=== PATIENT | female | born 1950 | race African-American/Black ===

== ENCOUNTER → 2019-08-06 | Outpatient (CLI) | payer BC ==
[2013-11-15 16:45] VITALS: BP 171/74
[~2019-08-06] MED LIST: ALLO300T PO; ASPI81TA59 PO; HYDR-2145 PO; LISI-130 PO; METF10007 PO; PIOG1TAB38 PO; PRAV20TA2 PO
--- NOTE | 2019-08-06 11:07 | RAD ---
3 views of the right hand and 2 views of the left for pain in both hands, no known injury. FINDINGS: There is no fracture, dislocation, or acute osseous abnormality of either hand. Both hands demonstrate symmetrical advanced osteoarthritis of the first carpometacarpal joint, with no other significant degenerative changes. No radiopaque foreign bodies. IMPRESSION: 1. No acute osseous abnormality of either hand. 2. Advanced mono articular osteoarthritis of the first carpometacarpal joint in both hands. Electronically signed by: West Gaspar MD (08/06/2019 11:04 AM) [id number]
== END ==
LOC: RAD 10:04
PROVIDERS: ATTEND Nurse Practitioner Gerontology
DX: M19.042 Primary osteoarthritis, left hand (principal); M19.041 Primary osteoarthritis, right hand
CPT/HCPCS: 73130

== ENCOUNTER → 2019-09-15 | Outpatient (CLI) | payer BC ==
[2013-11-15 16:45] VITALS: BP 171/74
== END | disposition home or self-care (01) ==
LOC: LAB 12:53
PROVIDERS: ATTEND Internal Medicine Gastroenterology
DX: Z01.812 Encounter for preprocedural laboratory examination (principal); Z11.59 Encounter for screening for other viral diseases
CPT/HCPCS: 36415; 87635

== ENCOUNTER → 2019-09-19 | Day surgery (SDC) | payer BC ==
[~2019-09-19] MED LIST changes: +IV RINGERS,LACTATED 1000ML 1,000 ML IV SCH; +LIDOCAINE 2% PF 5 ML VIAL. ONE; +PROPOFOL 10 MG/ML (20ML) VIAL. IV ONE
[2019-09-19 09:07] VITALS: BP 132/53
== END | disposition home or self-care (01) ==
LOC: ENDOS 06:34
PROVIDERS: ATTEND Internal Medicine Gastroenterology
DX: R13.10 Dysphagia, unspecified (principal); K21.9 Gastro-esophageal reflux disease without esophagitis; I10 Essential (primary) hypertension; E11.9 Type 2 diabetes mellitus without complications; E78.00 Pure hypercholesterolemia, unspecified; Z98.890 Other specified postprocedural states; Z82.3 Family history of stroke; Z82.49 Family history of ischemic heart disease and other diseases of the circulatory system; Z83.3 Family history of diabetes mellitus; Z79.899 Other long term (current) drug therapy; Z79.84 Long term (current) use of oral hypoglycemic drugs; Z90.710 Acquired absence of both cervix and uterus
CPT/HCPCS: 43235; 43450; J2704; J3490

== ENCOUNTER → 2019-10-03 | Outpatient (CLI) | payer BC ==
[2019-09-19 09:07] VITALS: BP 132/53
[~2019-10-03] MED LIST changes: +CONTRAST GIVEN. MC PRN; +IOHEXOL 240 MG/ML 50ML VIAL. PO ONE; -IV RINGERS,LACTATED 1000ML 1,000 ML IV SCH; -LIDOCAINE 2% PF 5 ML VIAL. ONE; -PROPOFOL 10 MG/ML (20ML) VIAL. IV ONE
[2019-10-03 12:53] LABS: CREATININE 1.8 mg/dL (0.6-1.0); GFR 33.9
--- NOTE | 2019-10-03 14:54 | RAD ---
EXAM: CT Chest and Abdomen without IV contrast CLINICAL HISTORY: Reason: chest pain/ abd pain wt. loss COMPARISON: None. TECHNIQUE: Helical CT of the chest and abdomen was performed without intravenous contrast. Axial, coronal and sagittal reformatted images were generated. ---PQRS compliance statement - One or more of the following individualized dose reduction techniques were utilized for this study: 1. Automated exposure control 2. Adjustment of the mA and/or kV according to patient size 3. Use of iterative reconstruction technique--- FINDINGS: Lack of intravenous contrast limits evaluation of solid organs, vasculature, and lymph nodes. Chest: The heart is mildly enlarged. No pericardial effusion. Coronary artery calcifications are seen. Relative hypoattenuation of the blood pool to the myocardium may be seen with anemia. Within the constraints of this noncontrast examination, no mediastinal or hilar lymphadenopathy. No axillary lymphadenopathy. No pleural effusion or pneumothorax. No dominant lung mass is seen. A 4 mm right upper lobe lung nodules is seen (series 2 image 22). Abdomen: No focal liver lesion. Gallbladder is normal. No biliary ductal dilatation. Spleen is unremarkable. Adrenal glands and pancreas are unremarkable. No renal calculus. No focal renal lesion. No hydronephrosis. No small or large bowel dilatation. Moderate colonic stool content. Aortic calcifications are seen. Bones: No aggressive osseous lesion is seen. Degenerative changes of the spine are seen. IMPRESSION: No thoracic or abdominal lymphadenopathy within the constraints of this noncontrast examination. Heart is mildly enlarged. Aortic and coronary artery calcifications are seen. Relative hypoattenuation of the blood pool to the myocardium may be seen with anemia. Electronically signed by: Lai Parks MD (10/03/2019 2:51 PM) [facility]
== END | disposition home or self-care (01) ==
LOC: CT 12:21
PROVIDERS: ATTEND Internal Medicine Gastroenterology
DX: I51.7 Cardiomegaly (principal); I25.10 Atherosclerotic heart disease of native coronary artery without angina pectoris; I70.0 Atherosclerosis of aorta; M47.814 Spondylosis without myelopathy or radiculopathy, thoracic region; R91.8 Other nonspecific abnormal finding of lung field; R10.9 Unspecified abdominal pain; R63.4 Abnormal weight loss
CPT/HCPCS: 36415; 71250; 74150; 82565; 84520; Q9966

== ENCOUNTER → 2019-10-23 | Outpatient (CLI) | payer BC ==
[2019-09-19 09:07] VITALS: BP 132/53
[~2019-10-23] MED LIST changes: -CONTRAST GIVEN. MC PRN; -IOHEXOL 240 MG/ML 50ML VIAL. PO ONE
--- NOTE | 2019-10-23 15:47 | RAD ---
EXAM: Left hand, 3 views. HISTORY: Pain. COMPARISON: None. FINDINGS: 3 views of the left and are obtained. There is severe first carpometacarpal joint space narrowing with subchondral sclerosis, spurring and bony remodeling. This includes chronic fragmented spurs. There is no foreign body. There are vascular calcifications. IMPRESSION: 1. Severe first carpal metacarpal joint osteoarthritis with associated bony remodeling. 2. No acute osseous finding. Electronically signed by: Deneen Antonio MD (10/23/2019 3:44 PM) [facility]
== END | disposition home or self-care (01) ==
LOC: RAD 15:12
PROVIDERS: ATTEND Family Medicine
DX: M19.042 Primary osteoarthritis, left hand (principal); M77.9 Enthesopathy, unspecified
CPT/HCPCS: 73130

== ENCOUNTER → 2019-11-25 | Outpatient (CLI) | payer BC ==
[2019-09-19 09:07] VITALS: BP 132/53
[~2019-11-25] MED LIST changes: +REGADENOSON 0.4 MG/5 ML DISP.SYRIN. IV ONE
--- NOTE | 2019-11-25 14:27 | CARD ---
MR#: [id number] Date of Study: 11/25/2019 Ordering Physician: RICHIE WEEMS, Referring Physician: RICHIE WEEMS, Tech: Patito Alston APPROVED REPORT EXAM: Two-dimensional and M-mode echocardiogram with Doppler and color Doppler. Other Information Quality : AverageHR: 88bpm INDICATION Dyspnea RISK FACTORS Hypertension Hyperlipidemia Diabetes 2D DIMENSIONS RVDd3.7 (2.9-3.5cm)Left Atrium(2D)4.1 (1.6-4.0cm) IVSd1.1 (0.7-1.1cm)Aortic Root(2D)2.8 (2.0-3.7cm) LVDd5.7 (3.9-5.9cm)LVOT Diameter1.9 (1.8-2.4cm) PWd1.3 (0.7-1.1cm)LVDs3.2 (2.5-4.0cm) FS (%) 45.1 %SV123.2 ml Aortic Valve AoV Peak Carlos.227.0cm/sAoV VTI51.2cm AO Peak GR.20.6mmHgLVOT Peak Carlos.133.2cm/s LVOT VTI 33.39cmAO Mean GR.11mmHg ALEJANDRA (VMAX)1.84gh6OBY (VTI)1.91cm2 Mitral Valve MV E Jseszsyh773.3cm/sMV E Peak Gr.123mmHg MV DECEL [id number] A Ivlrsutw974.3cm/s MV E Mean Gr.6mmHgMV [id number] E/A Ratio1.2MVA (PHT)3.92cm2 TDI E/Lateral E'19.0E/Medial E'19.6 Pulmonary Valve PV Peak Dmwdzyxa421.2cm/sPV Peak Grad.5mmHg Tricuspid Valve TR P. Gdccvqzo601ow/sRAP XWNHVQOP36khZb TR Peak Gr.26nxLrTLYP68qsUp Pulmonary Vein S1 Exarktwr99.7cm/sD2 Ymltzala45.4cm/s PVa cbcyfshi685trvh LEFT VENTRICLE The left ventricle is normal size. There is mild concentric left ventricular hypertrophy. The left ve ntricular systolic function is normal and the ejection fraction is within normal range. The Ejection Fraction is 60-65%. There is normal LV segmental wall motion. Transmitral Doppler flow pattern is Gra de II-pseudonormal filling dynamics. RIGHT VENTRICLE The right ventricle is normal size. There is normal right ventricular wall thickness. The right ventr icular systolic function is normal. ATRIA The left atrium is mildly dilated. The right atrium is borderline dilated. The interatrial septum is intact with no evidence for an atrial septal defect or patent foramen ovale as noted on 2-D or Dopple r imaging. AORTIC VALVE The aortic valve is thickened but opens well. Doppler and Color Flow revealed trace aortic regurgitat ion. There is no significant aortic valvular stenosis. Calculated aortic valve area is 1.98 cm2 with maximum pressure gradient of 23 mmHg and mean pressure gradient of 13 mmHg. MITRAL VALVE The mitral valve is normal in structure and function. There is no evidence of mitral valve prolapse. There is no mitral valve stenosis. Doppler and Color-flow revealed mild mitral regurgitation. TRICUSPID VALVE The tricuspid valve is normal in structure and function. Doppler and Color Flow revealed mild tricusp id regurgitation with an estimated PAP of 63 mmHg. There is no tricuspid valve stenosis. PULMONIC VALVE Doppler and Color Flow revealed trace pulmonic valvular regurgitation. GREAT VESSELS The aortic root is normal in size. The IVC is dilated and collapses <50% with inspiration. PERICARDIAL EFFUSION There is no evidence of significant pericardial effusion. Critical Notification Critical Value: No <Conclusion> The left ventricle is normal size. The left ventricular systolic function is normal and the ejection fraction is within normal range. The Ejection Fraction is 60-65%. There is mild concentric left ventricular hypertrophy. Doppler and Color Flow revealed trace aortic regurgitation. There is no significant aortic valvular stenosis. Calculated aortic valve area is 1.98 cm2 with maximum pressure gradient of 23 mmHg and mean pressure gradient of 13 mmHg. Doppler and Color-flow revealed mild mitral regurgitation. Doppler and Color Flow revealed mild tricuspid regurgitation with an estimated PAP of 63 mmHg. Signed by : Hiram Perez MD Electronically Approved : 11/25/2019 14:27:03
--- NOTE | 2019-11-26 17:18 | RAD ---
MR#: [id number] Date of Study: 11/26/2019 Ordering Physician: RICHIE WEEMS, Referring Physician: RICHIE WEEMS, Tech: Nathaniel Sutherland RVT APPROVED REPORT Patient Location: OUT-PATIENT Laterality:Bilateral Indications Bruit off and on weakness in hands x few months Risk Factors Hypertension: Diabetes Doppler Spectral Velocity Analysis Right Left pCCA 105/17 cm/spCCA 109/20 cm/s mCCA 113/15 cm/smCCA 103/23 cm/s dCCA 134/25 cm/sdCCA 97/23 cm/s ECA 132/ cm/sECA 76/ cm/s pICA 127/22 cm/spICA 99/22 cm/s Collin 127/30 cm/smICA 92/23 cm/s dICA 111/30 cm/sdICA 100/31 cm/s Vert. 103/23 cm/sVert. 88/24 cm/s ICA/CCA 1.10ICA/CCA 0.97 Findings Grayscale images of the bilateral carotid vessels demonstrates mild to moderate diffuse atherosclerot ic plaque. No significant focal obstruction is evident on grayscale images On the right side the peak systolic velocity is approximately 162 cm/s suggestive of a moderate steno sis. No significant occlusion is noted on the left side. Bilateral vertebral velocities are antegra de. Normal ICA to CCA ratios bilaterally. Critical Notification Critical Value: No <Conclusion> 1. Mild to moderate bilateral carotid disease. No focal high-grade obstruction noted. Signed by : Richie Weems, Electronically Approved : 11/26/2019 17:18:20
== END | disposition home or self-care (01) ==
LOC: NM 09:27
PROVIDERS: ATTEND Internal Medicine Cardiovascular Disease
DX: I08.1 Rheumatic disorders of both mitral and tricuspid valves (principal); I70.203 Unspecified atherosclerosis of native arteries of extremities, bilateral legs
CPT/HCPCS: 93306; 93880

== ENCOUNTER → 2019-12-26 | Outpatient (CLI) | payer BC ==
[2019-09-19 09:07] VITALS: BP 132/53
[~2019-12-26] MED LIST changes: +ALPR0.254 PO; +CYAN10002 IJ; +GABA300C18 PO; +METF500T16 PO; +PANT40TA77 PO; -REGADENOSON 0.4 MG/5 ML DISP.SYRIN. IV ONE
== END | disposition home or self-care (01) ==
LOC: LAB 12:48
PROVIDERS: ATTEND Internal Medicine Cardiovascular Disease
DX: R06.00 Dyspnea, unspecified (principal); Z20.828 Contact with and (suspected) exposure to other viral communicable diseases
CPT/HCPCS: U0003-CS

== ENCOUNTER 2019-12-30 06:42 | Outpatient (CLI) | payer BC ==
[2019-12-30] VITALS (19 sets, daily range): BP systolic 126–152; BP diastolic 57–73
[~2019-12-30] VITALS: Ht 162.6 cm; Wt 112.5 kg
[~2019-12-30 06:42] MED LIST changes: -ALPR0.254 PO; -CYAN10002 IJ; -GABA300C18 PO; -METF500T16 PO; -PANT40TA77 PO
[2019-12-30] MEDS ORDERED: LIDOCAINE 1% PF 2 ML VIAL. ONE (07:36)
[2019-12-30] MEDS ORDERED: IODIXANOL 320 MG/ML 100 ML VIAL. ONE (07:36)
[2019-12-30] MEDS ORDERED: HEPARIN for ARTERIAL LINE 1,500 ML ONE (07:36)
[2019-12-30 07:41] LABS: HEMATOCRIT 35.2 % (36.0-47.0); HEMOGLOBIN 11.5 g/dL (12.0-15.5); RED BLOOD COUNT 4.28 x10^6/uL (3.50-5.40); RED CELL DISTRIBUTION WIDTH 16.1 % (11.5-14.5); WHITE BLOOD COUNT 8.4 x10^3/uL (4.0-11.0)
[2019-12-30 07:47] LABS: CALCIUM 9.7 mg/dL (8.5-10.1); CREATININE 1.8 mg/dL (0.6-1.0); GFR 33.9; POTASSIUM 4.6 mmol/L (3.5-5.1)
[2019-12-30 07:55] LABS: PROTHROMBIN TIME PATIENT 12.1 SEC (11.7-14.0)
[2019-12-30] MEDS ORDERED: METF500T16 PO (08:10)
[2019-12-30] MEDS ORDERED: GABA300C18 PO (08:10)
[2019-12-30] MEDS ORDERED: PANT40TA77 PO (08:10)
[2019-12-30] MEDS ORDERED: HYDR-2145 PO (08:10)
[2019-12-30] MEDS ORDERED: ALPR0.254 PO (08:10)
[2019-12-30] MEDS ORDERED: CYAN10002 IJ (08:10)
[2019-12-30] MEDS ORDERED: fentaNYL PF VIAL 100 MCG/2 ML VIAL ONE (08:37)
[2019-12-30] MEDS ORDERED: MIDAZOLAM HCL/PF 2 MG/2 ML VIAL. ONE (08:37)
[2019-12-30] MEDS ORDERED: VERAPAMIL 5 MG/2 ML VIAL. ONE (08:37)
[2019-12-30] MEDS ORDERED: NITROGLYCERIN 200 MCG/2 ML SYRINGE FOR CATH/VASC LAB. ONE (08:37)
[2019-12-30] MEDS ORDERED: HEPARIN for IV BOLUS 10,000 UNIT/10 ML VIAL. ONE (08:37)
[2019-12-30] MEDS ORDERED: LIDOCAINE 1% Multi-Dose 20 ML VIAL. ONE (09:02)
[2019-12-30] MEDS ORDERED: fentaNYL PF VIAL 100 MCG/2 ML VIAL IV ONE (09:15)
[2019-12-30] MEDS ORDERED: LIDOCAINE 1% PF 2 ML VIAL. INJ ONE (09:15)
[2019-12-30] MEDS ORDERED: NITROGLYCERIN 200 MCG/2 ML SYRINGE FOR CATH/VASC LAB. IART ONE (09:15)
[2019-12-30] MEDS ORDERED: IODIXANOL 320 MG/ML 100 ML VIAL. IART ONE (09:15)
[2019-12-30] MEDS ORDERED: MIDAZOLAM HCL/PF 2 MG/2 ML VIAL. IV ONE (09:15)
[2019-12-30] MEDS ORDERED: CONTRAST GIVEN. MC PRN (09:15)
[2019-12-30] MEDS ORDERED: HEPARIN for IV BOLUS 10,000 UNIT/10 ML VIAL. IART ONE (09:15)
[2019-12-30] MEDS ORDERED: LIDOCAINE 1% Multi-Dose 20 ML VIAL. INJ ONE (09:15)
[2019-12-30] MEDS ORDERED: VERAPAMIL 5 MG/2 ML VIAL. IART ONE (09:15)
[2019-12-30 09:28] LABS: BASE EXCESS ABG -3 mmol/L (-3-3); HCO3 ABG 21 mmol/L (21-28); PCO2 ABG 36 mmHg (35-46); PO2 ABG 160 mmHg (65-108); SAT O2 ABG 99 % (92-99)
--- NOTE | 2019-12-30 10:20 | CARD ---
MR#: [id number] Date of Study: 12/30/2019 Ordering Physician: RICHIE GENTILE, Referring Physician: RICHIE GENTILE, Tech: TEA DUMONT RTR APPROVED REPORT Technologist: TEA DUMONT RTR Nurse: Melisa Phillips R.N. Procedure(s) performed: MODERATE SEDATION TIME: 46 MINUTES FLUORO TIME: 3.1 MIN DOSE: 36.3 GYCM2 CONTRAST: 34CC VISI RHC, LHC, Coronary angiography HISTORY The patient is a 69 year-old female with a history of : renal failure without dialysis, hypertension, dyslipidemia. [facility] Clinical Frailty Scale [facility] Clinical Frailty Scale: Moderately Frail Heart Failure Heart Failure: Yes If Yes, Newly Diagnosed: No If Yes, HF Type: Diastolic If Yes, NYHA Class: Class II PROCEDURE NARRATIVE The patient was brought electively to the cardiac catheterization lab. A timeout was performed confi rming the patient's name, date of , procedure, and site of procedure. All necessary personnel w ere wearing the appropriate protective equipment and radiation monitor devices. After explaining the risks and benefits of the procedure and alternatives, informed consent was obtained. (See nursing no addis for medications administered). The right wrist and neck were sterilely prepped and draped in the usual fashion. The right wrist/groin were infiltrated with 20 mL of 2% lidocaine for subcutaneous a nesthesia. A 6 Fsheath was inserted into the right radial artery without difficulty via the modified seldinger technique with an 18G needle and a J-tipped guidewire. Next, an 5Fr sheath was inserted in the right jugular vein in similar fashion without difficulty. A PA catheter was then advanced through the right heart chambers, pressures and saturations were obta ined. Subsequently, right and left coronary angiography was performed using a TIG catheter. Left perfecto tricular end diastolic pressure was obtained with a TIG catheter and pullback was performed. HEMODYNAMICS: LVEDP 8 mm Hg AO: 120/80 *No gradient on LV to aortic pullback. PCWP: 10 mm Hg PA: 45/6/24 RV: 41/0/7 RA: 5 mm Hg Arben: 8.8 L/min Alf: 4.1 PA saturation: 83.2% FA saturation: 99% RV: 84% RA: 84% *No intracardiac shunt noted. AB.4/36/160 on 2L O2 via NC. LEFT VENTRICULOGRAM: Deferred due to known normal EF and CKD. CORONARY ANGIOGRAPHY: LM: The LAD and LCx have seperate ostia. LAD is a large caliber vessel a mid 40% stenosis. LCx is a large caliber non-dominant vessel with normal angiographic appearance. RCA is a large caliber dominant vessel with mild up to 20% stenosis. RPDA and RPL are small to caliber vessels with luminal irregularities. At case completion, the right radial sheath was removed and a radial band was applied for hemostasis with 14 mL of air. The right IJ sheath was removed with manual compression. Conclusion 1. Normal biventricular filling pressures. 2. No evidence of pulmonary HTN 3. High cardiac output without intracardiac shunting 4. No significant coronary disease. Recommendations 1. Further evaluation of dyspnea per PCP, consider referral to CKD clinic and pulmonary clinic. 2. Discussed weight loss. Signed by : Richie Gentile, Electronically Approved : 12/30/2019 10:20:13
[2019-12-30 11:43] LABS: FIO2 ABG 28
--- NOTE | 2019-12-30 14:13 | NUR ---
Discharge Note: MICHAEL MUKHERJEE Discharge instructions and discharge home medications reviewed with Patient and a copy given. All questions have been answered and understanding verbalized. Patient ate breakfast and lunch with no difficulties. The following instructions and handouts were given: Moderate sedation and radial site care. Discontinued lines and drains: Left wrist, dressing clean dry intact. Patient discharged to home with friend via wheelchair to private vehicle.
== END 2019-12-30 14:00 | disposition home or self-care (01) ==
LOC: CCL 06:42
PROVIDERS: ATTEND Internal Medicine Cardiovascular Disease
DX: I25.10 Atherosclerotic heart disease of native coronary artery without angina pectoris (principal); R06.09 Other forms of dyspnea; I12.9 Hypertensive chronic kidney disease with stage 1 through stage 4 chronic kidney disease, or unspecified chronic kidney disease; N18.9 Chronic kidney disease, unspecified; E78.5 Hyperlipidemia, unspecified; Z79.899 Other long term (current) drug therapy; Z94.0 Kidney transplant status; Z79.82 Long term (current) use of aspirin
CPT/HCPCS: 36415; 36600; 76937; 80048; 82805; 85027; 85610; 93460; 99152; 99153; C1769; C1773; C1892; J1644; J2250; J3010; J3490; Q9967

== ENCOUNTER 2020-12-03 17:47 | Emergency (ER) | payer BC ==
[2019-12-30 13:40] VITALS: BP 137/58
[~2020-12-03 17:47] MED LIST changes: +ALPR0.254 PO; +CYAN10002 IJ; +GABA300C18 PO; +METF500T16 PO; +PANT40TA77 PO
== END 2020-12-03 20:30 | disposition left against medical advice (07) ==
LOC: ER 17:47
DX: R10.9 Unspecified abdominal pain (principal); Z53.21 Procedure and treatment not carried out due to patient leaving prior to being seen by health care provider

== ENCOUNTER → 2020-12-17 | Outpatient (CLI) | payer BC, MEDICARE ==
[2019-12-30 13:40] VITALS: BP 137/58
--- NOTE | 2020-12-17 12:39 | KCIC ---
EXAM: MRI left shoulder DATE: 12/17/2020 9:40 AM COMPARISON: None INDICATION: Reason: LEFT SHOULDER PAIN / Spl. Instructions: / History: Left shoulder pain for 3 kamron hs. LROM. TECHNIQUE: Multiplanar, multisequence MRI of the left shoulder was performed without contrast. FINDINGS: AC joint degenerative changes with associated marrow edema. No os acromiale. Type II acromion. Subacromial and subdeltoid bursal fluid likely bursitis. Partial-thickness bursal sided tear of the supraspinatus tendon measures 9 mm in AP dimension involvi ng approximately 90 percent tendon thickness. Moderate increased signal within the supraspinatus and infraspinatus tendons, tendinosis. Rotator cuff muscle signal and bulk is normal without fatty atroph y. Extra articular long and intra-articular portions of the long head biceps tendon are intact. Mild deformity of the posterior-posterior superior labrum with associated fluid cleft likely labral t ear extending from the biceps tendon anchor. No fracture or osteonecrosis. Mild chondral thinning centrally humeral head without discrete full-thi ckness defect. IMPRESSION: 1. High-grade partial-thickness bursal sided tear of the supraspinatus. 2. Moderate tendinosis supraspinatus and infraspinatus. 3. Suspected SLAP tear from the biceps tendon anchor to the 10:00 position. 4. Subacromial-subdeltoid bursitis. Electronically signed by: Lai Parks MD (12/17/2020 12:36 PM) [facility]
== END ==
LOC: KCIC MRI 09:23
PROVIDERS: ATTEND Orthopaedic Surgery
DX: M75.112 Incomplete rotator cuff tear or rupture of left shoulder, not specified as traumatic (principal); M77.8 Other enthesopathies, not elsewhere classified; M75.52 Bursitis of left shoulder
CPT/HCPCS: 73221

== ENCOUNTER 2021-02-18 07:16 | Day surgery (SDC) | payer MEDICARE ==
[~2021-02-18] VITALS: Ht 160 cm; Wt 120.0 kg
[~2021-02-18 07:16] MED LIST changes: +CARV12.511 PO; +CHOL5000 PO; +GLIP5TAB10 PO; +HYDROmorphone 2 MG/ML VIAL IVP PRN; +IV RINGERS,LACTATED 1000ML 1,000 ML IV SCH; +MORPHINE SULFATE 2 MG/ML INJ. IVP PRN; +PROCHLORPERAZINE 10 MG/2 ML VIAL. IVP PRN; +fentaNYL PF VIAL 100 MCG/2 ML VIAL IVP PRN
[2021-02-18] MEDS ORDERED: MIDAZOLAM HCL/PF 2 MG/2 ML VIAL. ONE ×2 (08:31→09:07)
[2021-02-18] MEDS ORDERED: BUPIVACAINE MPF 0.5% 30 ML VIAL. ONE (08:32)
[2021-02-18] MEDS ORDERED: LIDOCAINE 2% PF 5 ML VIAL. ONE (09:06)
[2021-02-18] MEDS ORDERED: ONDANSETRON PF 4 MG/2 ML VIAL. ONE ×2 (09:06→13:14)
[2021-02-18] MEDS ORDERED: PROPOFOL 10 MG/ML (20ML) VIAL. IV ONE (09:06)
[2021-02-18] MEDS ORDERED: fentaNYL PF VIAL 100 MCG/2 ML VIAL ONE ×2 (09:06→12:01)
[2021-02-18] MEDS ORDERED: DEXAMETHASONE SOD PHOS 4 MG/ML VIAL ONE (09:06)
[2021-02-18] MEDS ORDERED: ROCURONIUM 50 MG/5 ML VIAL. ONE (09:06)
[2021-02-18] MEDS ORDERED: SUCCINYLCHOLINE 200 MG/10 ML VIAL. ONE (09:15)
[2021-02-18] MEDS ORDERED: EPINEPHrine VIAL 30 MG/30 ML VIAL ONE (09:19)
[2021-02-18] MEDS ORDERED: ePHEDrine PF IN SALINE 50 MG/10 ML SYRINGE. IV ONE (10:17)
[2021-02-18] MEDS ORDERED: NEOSTIGMINE METHYLSULFATE 5 MG/5 ML SYRINGE. ONE (11:20)
[2021-02-18] MEDS ORDERED: GLYCOPYRROLATE 1 MG/5 ML VIAL. ONE (11:20)
[2021-02-18] MEDS ORDERED: PROCHLORPERAZINE 10 MG/2 ML VIAL. ONE (12:19)
[2021-02-18] MEDS: fentaNYL PF VIAL 100 MCG/2 ML VIAL IVP PRN ×2 (12:30→12:50)
[2021-02-18] MEDS ORDERED: oxyCODONE/APAP 5/325 1 TAB TABLET ONE (12:55)
[2021-02-18] MEDS ORDERED: oxyCODONE/APAP 5/325 1 TAB TABLET PO ONE (13:00)
[2021-02-18] MEDS ORDERED: ONDANSETRON PF 4 MG/2 ML VIAL. IM ONE (13:15)
[2021-02-18] MEDS ORDERED: ONDANSETRON PF 4 MG/2 ML VIAL. IVP ONE (13:30)
[2021-02-18 13:35] VITALS: BP 156/60
[2021-02-18] MEDS ORDERED: OXYC1TAB19 PO (15:35)
--- NOTE | 2021-02-18 15:40 | DISCH ---
DISCHARGE INSTRUCTIONS Condition on Discharge Condition on Discharge: Stable Activity After Discharge Activity Instructions for Disc: Other, see below (Passive range of motion of shoulder with physical therapy and home exercises with pendulum exercises and may do fine motor use with elbow at side such as eating writing and typing) Lifting Instructions after Dis: No heavy lifting, No pulling or pushing Exercise Instruction after Dis: Progress as tolerated Driving Instructions after Dis: Do not drive, Do not drive today Weight Bearing Status after Di: As tolerated Diet after Discharge Diet after Discharge: Regular Wound Incision Care Wound/Incision Care: Ice to area for comfort, Change dressing (May remove dressing in 2 days may then shower, no soaking until follow-up and wound check) Community/Resources/Services Services at Discharge: PT EVALUATE & TREAT (Evaluate and treat for passive range of motion of shoulder x4 weeks postop) Contacting the after DC Call your doctor for: Concerns you may have Follow-Up Follow up with: Dr. Freire or Wilfrid 10 days MARYA FREIRE MD Feb 18, 2021 15:40
--- NOTE | 2021-02-18 21:19 | PDOC4 ---
Operative Note Operative Note Date of surgery: 02/18/2021 Preoperative diagnosis: Left supraspinatus tear and acromioclavicular joint arthralgia with possible biceps anchor compromise Postoperative diagnosis: Same but with intact biceps anchor aside from superior labral fraying Operative procedure: Left shoulder arthroscopy arthroscopic rotator cuff repair distal clavicle excision subacromial decompression and debridement of superior labrum Surgeon: Mouna Assist: Jacob burnham assist Anesthesia: General Estimated blood loss: 10 cc Complications: None Operative indications: Please see my orthopedic clinic note for detailed operative indications and note that we had covered the risks benefits postoperative course of potential surgical treatment including the possibility of nonhealing of the rotator cuff continued pain infection nerve or blood vessel damage medical other anesthetic complications among others and the typically long rehabilitation and recovery process. All her questions were answered she wishes to proceed with surgical evaluation and treatment Operative text: Patient was identified procedure verified patient placed in the supine position on the operating table. After adequate amounts of general ane sthesia were administered plus a pre-existing scalene block, patient was placed in the decubitus position left side up all bony prominences were well-padded and the left shoulder was examined under anesthesia found to have full range of motion no instability. The left shoulder was then prepped and draped in standard sterile fashion placed into the arthroscopic arm eisenberg with a total of 10 pounds of traction and after timeout was performed patient procedure identified and verified a posterior portal was established an anterior portal established using spinal needle localization and the shoulder joint was systematically examined. She was found to have some fraying of the superior labrum which was debrided back to stable tissue and no SLAP lesion was present. Rotator cuff was suspicious for a tear at the distal supraspinatus and was confirmed by passing a monofilament suture with a spinal needle and locating this on the bursal side following adequate clearance of bursal tissue for visualization after making a lateral arthroscopic portal. While still in the joint, normal bare area of the humerus and glenohumeral cartilage as well as labral and capsuloligamentous structures were noted as well as normal insertion of the subscapularis. On the bursal side she was noted to have a large anterior acromial spur which was trimmed back to type I acromion using cutting block technique and distal clavicle was excised to 1 cm preserving overlying joint capsule for stability. Any bony fragments were removed with the arthroscopic shaver and the arthroscopic bur was used to debride but not decorticate the rotator cuff footprint to a bleeding bony surface. A total of 2 double loaded juggernaut anchors were placed along the medial row and sutures placed in a simple fashion. Lateral row fixation was accomplished in a watertight manner using a 5.5 knotless peek suture anchor and the rotator cuff repair examined in all degrees of internal/external rotation. The joint was drained of arthroscopic fluid portals closed with nylon suture sterile dressings were applied patient was placed in an immobilizer return to recovery room in stable condition having tolerated procedure well. Jacob burnham assist was present for the procedure assisted in patient positioning prepping draping equipment positioning retraction closure and dressings MARYA MUNIZ MD Feb 18, 2021 21:18
== END 2021-02-18 16:15 | disposition home or self-care (01) ==
LOC: SURG 07:16
PROVIDERS: ATTEND Orthopaedic Surgery
DX: M25.512 Pain in left shoulder (principal); S43.432A Superior glenoid labrum lesion of left shoulder, initial encounter; S46.012A Strain of muscle(s) and tendon(s) of the rotator cuff of left shoulder, initial encounter; M75.02 Adhesive capsulitis of left shoulder; I25.10 Atherosclerotic heart disease of native coronary artery without angina pectoris; I10 Essential (primary) hypertension; E78.00 Pure hypercholesterolemia, unspecified; E11.9 Type 2 diabetes mellitus without complications; M19.90 Unspecified osteoarthritis, unspecified site; M10.9 Gout, unspecified; F32.9 Major depressive disorder, single episode, unspecified; Z79.82 Long term (current) use of aspirin; Z79.899 Other long term (current) drug therapy; Z98.890 Other specified postprocedural states; X58.XXXA Exposure to other specified factors, initial encounter; Y93.89 Activity, other specified; Y92.89 Other specified places as the place of occurrence of the external cause; Y99.8 Other external cause status
CPT/HCPCS: 29824; 29827; 82962; A4364; A4565; A4930; C1713; J0171; J0330; J0690; J0780; J1100; J2250; J2405; J2704; J2710; J3010; J3490; A4223; A4452

== ENCOUNTER → 2021-05-24 | Outpatient (CLI) | payer MEDICARE ==
[~2021-05-24] MED LIST changes: -HYDROmorphone 2 MG/ML VIAL IVP PRN; -IV RINGERS,LACTATED 1000ML 1,000 ML IV SCH; -MORPHINE SULFATE 2 MG/ML INJ. IVP PRN; +OXYC1TAB19 PO; -PROCHLORPERAZINE 10 MG/2 ML VIAL. IVP PRN; -fentaNYL PF VIAL 100 MCG/2 ML VIAL IVP PRN
--- NOTE | 2021-05-24 10:28 | RAD ---
EXAMINATION: US ABDOMEN COMPLETE INDICATION: 71 years, Female, epigastric pain. COMPARISON: None TECHNIQUE: Grayscale, color Doppler and limited spectral Doppler images of the abdomen were obtained. FINDINGS: LIVER: SIZE (LENGTH): 15.3 cm. ECHOGENICITY: Normal. PARENCHYMA: Homogeneous echotexture. No discrete focal lesion. INTRAHEPATIC BILE DUCTS: Nondilated. PORTAL VEIN: Patent with normal hepatopedal flow. GALLBLADDER: GALLBLADDER WALL THICKNESS: 2 mm. MORPHOLOGY: Normal morphology. No pericholecystic free fluid. LUMEN: Normal. COMMON BILE DUCT DIAMETER: 5 mm. RIGHT KIDNEY: MEASURES: 9.1 cm in length. MORPHOLOGY/PARENCHYMA: Normal corticomedullary differentiation with no shadowing calculus or discrete masses. COLLECTING SYSTEM: No hydronephrosis. LEFT KIDNEY: MEASURES: 10.2 cm in length MORPHOLOGY/PARENCHYMA: Normal corticomedullary differentiation with no shadowing calculus or discrete masses. COLLECTING SYSTEM: No hydronephrosis. SPLEEN: SIZE (LENGTH): 10.0 cm PARENCHYMA: Unremarkable. PANCREAS: Obscured by overlying bowel gas. OTHER: RETROPERITONEUM, INFERIOR VENA CAVA: Normal caliber. AORTA: Normal caliber. FLUID:No free fluid. IMPRESSION: Unremarkable abdominal ultrasound. Electronically signed by: Nasrin Lobo MD (05/24/2021 10:26 AM) [id number]
== END ==
LOC: US 07:12
PROVIDERS: ATTEND Family Medicine
DX: R10.13 Epigastric pain (principal)
CPT/HCPCS: 76700